=== PATIENT | male | born 1965 | race Caucasian/White ===

== ENCOUNTER 2020-07-29 06:49 | Day surgery (SDC) | payer BC, MEDICAID ==
[~2020-07-29 06:49] MED LIST: LACTATED RINGERS 1,000 ML IV SCH
[2020-07-29 07:15] VITALS: RESP 16; TEMP 98.2
[2020-07-29] MEDS ORDERED: LIDOCAINE 1% (10MG/ML) FOR IV START INTRADERMA ONE (07:23)
[2020-07-29] MEDS ORDERED: fentaNYL (PF) 50 MCG/ML 2 ML AMP ONE (07:40)
[2020-07-29] MEDS ORDERED: PROPOFOL 10 MG/ML 20 ML VIAL IV ONE (07:40)
[2020-07-29] MEDS ORDERED: MIDAZOLAM 2 MG/2 ML VIAL ONE (07:40)
--- NOTE | 2020-07-29 08:13 | P.PCN ---
Date of Procedure: 07/29/20 Description of Procedure: BRIEF HISTORY: Patient is a 55-year-old pleasant male presenting for outpatient colonoscopy for screening for malignant neoplasm of the colon. No change in bowel habits or abdominal pain. No family history of colon cancer but he does report colon polyps in his father and sister. PROCEDURE PERFORMED: Colonoscopy with polypectomy. PREOPERATIVE DIAGNOSIS: Screening for malignant neoplasm in the colon, no prior colonoscopy. ESTIMATED BLOOD LOSS: Minimal. IV sedation per Anesthesia. PROCEDURE: After informed consent was obtained, the patient, was brought into the endoscopy unit. IV sedation was administered by Anesthesia under continuous monitoring. Digital rectal examination was normal. Initially the Olympus CF-190 flexible video colonoscope was then inserted in the rectum, gradually advanced into the cecum without any difficulty. Careful examination was performed as the scope was gradually being withdrawn. Ileocecal valve and the appendiceal orifice were visualized and appeared normal. Prep was excellent. Mucosa of the cecum, ascending colon, transverse colon, descending colon, sigmoid colon, and rectum appeared normal. A 4 mm hepatic flexure polyp removed with cold snare polypectomy. 2 diminutive 1 mm polyp removed with cold forcep polypectomy from the sigmoid colon and rectum.. Retroflexion was performed in the rectum and no lesions were seen, low-grade internal hemorrhoids. The patient tolerated the procedure well. IMPRESSION: Sessile hepatic flexure polyp removed with cold snare polypectomy. 2 diminutive polyps removed from the sigmoid colon and rectum with cold forcep polypectomy. Otherwise normal-appearing colon from rectum to cecum. RECOMMENDATIONS: Findings of this examination were discussed with the patient.. Okay to resume diet. Okay to resume medications. Await pathology from polypectomies. Recommend repeat colonoscopy in 5-7 years pending pathology from polypectomies.
[2020-07-29 08:27] VITALS: BP 120/74; PULSE 69
== END 2020-07-29 09:07 | disposition home or self-care (01) ==
LOC: ORWHC2ENDO 06:49
PROVIDERS: ATTEND Internal Medicine
DX: Z12.11 Encounter for screening for malignant neoplasm of colon (principal); Z83.71 Family history of colonic polyps; D12.3 Benign neoplasm of transverse colon; K62.1 Rectal polyp; I10 Essential (primary) hypertension; Z98.890 Other specified postprocedural states; Z79.82 Long term (current) use of aspirin; Z79.899 Other long term (current) drug therapy; Z88.5 Allergy status to narcotic agent
CPT/HCPCS: 88305; 45380; 45385; J2250; J3010; J2704